=== PATIENT | male | born 1990 | race Caucasian/White ===

== ENCOUNTER → 2022-01-03 13:50 | Outpatient (CLI) | payer OTHER, SELFPAY ==
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
== END ==
PROVIDERS: Referring Provider Student in an Organized Health Care Education/Training Program; Visit Provider Student in an Organized Health Care Education/Training Program
DX: S43.492A Other sprain of left shoulder joint, initial encounter (principal); M75.112 Incomplete rotator cuff tear or rupture of left shoulder, not specified as traumatic; M19.012 Primary osteoarthritis, left shoulder; M25.512 Pain in left shoulder
CPT/HCPCS: 23350; 73222

== ENCOUNTER 2022-02-23 15:09 | Emergency (ER) | payer OTHER, SELFPAY ==
[2022-02-23 15:16] VITALS: BP 143/76; PULSE 66; RESP 14; TEMP 36.1; O2SAT 100; BMI 27.0
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
[2022-02-23] MEDS: KETOROLAC 30 MG/ML VIAL 15 MG IM (16:11)
[2022-02-23] MEDS: ONDANSETRON 4 MG ODT SL (16:11)
[2022-02-23] MEDS: ACETAMINOPHEN 325 MG TABLET 975 MG PO (16:11)
== END 2022-02-23 16:36 | disposition home or self-care (01) ==
PROVIDERS: Emergency Provider Nurse Practitioner Critical Care Medicine
DX: S69.92XA Unspecified injury of left wrist, hand and finger(s), initial encounter (principal); S99.921A Unspecified injury of right foot, initial encounter; S20.312A Abrasion of left front wall of thorax, initial encounter; S40.812A Abrasion of left upper arm, initial encounter; V19.9XXA Pedal cyclist (driver) (passenger) injured in unspecified traffic accident, initial encounter
CPT/HCPCS: 71046; 73130; 73630; 96372; 99283; J1885